=== PATIENT | male | born 1955 | race Caucasian/White ===

== ENCOUNTER 2022-05-04 07:40 | Emergency (ER) | payer OTHER ==
[2022-05-04 07:48] VITALS: BP 138/90; PULSE 86; RESP 16; TEMP 97.6; BMI 28.6
[2022-05-04 09:08] LABS: BASO % 0.7 % (0-2.0); EOS % 0.3 % (0-4.5); HEMATOCRIT 45.1 % (35.4-49); HEMOGLOBIN 15.2 GM/dL (11.7-16.9); LYMPH % 26.2 % (8-40); MCH 30.3 pg (25.7-33.7); MCHC 33.6 g/dl (32.0-35.9); MEAN CELL VOLUME 90.2 fl (80-96); MEAN PLT VOLUME 7.3 fl (7.5-11.1); MONO % 9.2 % (3.8-10.2); NEUT % 63.6 % (42.8-82.8); PLATELET COUNT 288 10^3/uL (134-434); RDW 13.2 % (11.9-15.9); WHITE BLOOD COUNT 4.4 K/mm3 (4.0-10.0)
[2022-05-04 09:15] LABS: INR 1.11 (0.83-1.09); PROTHROMBIN TIME (PATIENT) 12.8 SEC (9.7-13.0)
[2022-05-04 09:18] LABS: ACTIVATED PTT 35.3 SECONDS (25.2-36.5)
[2022-05-04 09:29] LABS: BLOOD UREA NITROGEN 16.9 mg/dL (7-18); CALCIUM 9.8 mg/dL (8.5-10.1)
[2022-05-04 09:32] LABS: CREATININE 1.1 mg/dL (0.55-1.3)
[2022-05-04 09:34] LABS: BILIRUBIN,TOTAL 0.4 mg/dL (0.2-1); TOT PROT 6.8 g/dl (6.4-8.2)
== END 2022-05-04 10:02 | disposition home or self-care (01) ==
LOC: JER 07:40
DX: K62.5 Hemorrhage of anus and rectum (principal); K64.9 Unspecified hemorrhoids
CPT/HCPCS: 36415; 80053; 82272; 84484; 85025; 85610; 85730; 86850; 86900; 86901; 99283-25

== ENCOUNTER 2022-09-02 04:28 | Day surgery (SDC) | payer OTHER ==
[2022-09-01 14:19] VITALS: BMI 28.8
[2022-09-02 09:09] VITALS: TEMP 98
[2022-09-02 09:22] VITALS: RESP 17
[2022-09-02 09:40] VITALS: BP 127/93; PULSE 67
== END 2022-09-02 10:18 | disposition home or self-care (01) ==
LOC: JASU-ENDO 04:28
PROVIDERS: ATTEND Student in an Organized Health Care Education/Training Program
PROC: 0DBL8ZX Excision of Transverse Colon, Via Natural or Artificial Opening Endoscopic, Diagnostic (ICD-10-PCS; 2022-09-02)
PROC: 0DBP8ZX Excision of Rectum, Via Natural or Artificial Opening Endoscopic, Diagnostic (ICD-10-PCS; principal; 2022-09-02 08:30)
DX: K62.1 Rectal polyp (principal); D12.3 Benign neoplasm of transverse colon; K57.30 Diverticulosis of large intestine without perforation or abscess without bleeding; K63.89 Other specified diseases of intestine
CPT/HCPCS: 88305-TC

== ENCOUNTER 2024-11-16 06:05 | Day surgery (SDC) | payer OTHER ==
[2024-11-14 11:53] VITALS: BMI 25.0
[2024-11-16 08:44] LABS: ABSOLUTE IMMATURE GRANULOCYTES 0.01 x10^3/uL (0.0-0.031); BASOPHILS # 0.05 x10^3/uL (0.01-0.08); EOSINOPHIL % 0.9 % (0.8-7.0); EOSINOPHILS # 0.04 x10^3/uL (0.04-0.54); MCHC 34.1 g/dl (32.3-36.5); MEAN CELL VOLUME 91.2 fl (79.0-92.2); MEAN PLT VOLUME 9.2 fl (9.4-12.4); MONOCYTE # 0.49 x10^3/uL (0.30-0.82); MONOCYTE % 10.4 % (5.3-12.2); RDW 12.8 % (12.2-16.6)
[2024-11-16 08:50] LABS: INR 1.11 (0.83-1.09); PROTHROMBIN TIME (PATIENT) 12.1 SEC (9.7-13.0)
[2024-11-16 09:13] LABS: CO2 25.0 mmol/L (21-32); GLUCOSE,RANDOM 116.0 mg/dL (74-106)
[2024-11-16 09:16] LABS: CREATININE 1.1 mg/dL (0.55-1.3); SGOT/AST 13.0 U/L (15-37); SGPT/ALT 35.0 U/L (13-61)
[2024-11-16 09:17] LABS: TOT PROT 6.5 g/dl (6.4-8.2)
[2024-11-16 09:19] LABS: ALK PHOS 81.0 U/L (45-117)
[2024-11-16] MEDS ORDERED: FENTANYL CITRATE/PF 50 MCG/ML VIAL ONE (10:28)
[2024-11-16] MEDS: SODIUM CHLORIDE 500 ML IV ONE (10:40)
[2024-11-16] MEDS: FENTANYL CITRATE/PF 50 MCG/ML VIAL IVPUSH ONE ×3 (10:44→10:50)
[2024-11-16 11:52] VITALS: RESP 16
[2024-11-16 12:59] VITALS: BP 125/85; PULSE 73; TEMP 97.8
== END 2024-11-16 13:00 | disposition home or self-care (01) ==
LOC: JRADIR 06:05
PROVIDERS: ATTEND Nurse Practitioner Family
PROC: 0QB03ZX Excision of Lumbar Vertebra, Percutaneous Approach, Diagnostic (ICD-10-PCS; principal; 2024-11-16)
DX: C90.00 Multiple myeloma not having achieved remission (principal)
CPT/HCPCS: 20225; 36415; 77012-TC; 80053; 85025; 85610; 88305-TC

== ENCOUNTER 2025-01-16 09:49 | Day surgery (SDC) | payer OTHER ==
[~2025-01-16 09:49] MED LIST: DARATUMUMAB-HYALURONIDASE-FIHJ (FASPRO) 15 ML VIAL SQ ONE
[2025-01-16 10:40] LABS: ABSOLUTE IMMATURE GRANULOCYTES 0.09 x10^3/uL (0.0-0.031); BASOPHILS # 0.00 x10^3/uL (0.01-0.08); EOSINOPHIL % 0.0 % (0.8-7.0); EOSINOPHILS # 0.00 x10^3/uL (0.04-0.54); MCHC 33.5 g/dl (32.3-36.5); MEAN CELL VOLUME 92.6 fl (79.0-92.2); MEAN PLT VOLUME 9.3 fl (9.4-12.4); MONOCYTE # 0.37 x10^3/uL (0.30-0.82); MONOCYTE % 8.5 % (5.3-12.2); RDW 13.4 % (12.2-16.6)
[2025-01-16 11:04] LABS: TOT PROT 5.7 g/dl (6.4-8.2)
[2025-01-16 11:06] LABS: ALK PHOS 85.0 U/L (40-150); GLUCOSE,RANDOM 129 mg/dL (74-106)
[2025-01-16 11:07] LABS: CO2 20 mmol/L (21-32)
[2025-01-16 11:09] LABS: SGOT/AST 18.0 U/L (5-34); SGPT/ALT 47.0 U/L (0-55)
[2025-01-16 11:12] LABS: CREATININE 0.82 mg/dL (0.55-1.3)
[2025-01-16] MEDS: diphenhydrAMINE HCL 25 MG CAPSULE (FP) PO ONE (11:25)
[2025-01-16] MEDS: DEXAMETHASONE 4 MG TABLET (FP) PO ONE (11:25)
[2025-01-16] MEDS: ACETAMINOPHEN 325 MG TABLET (FP) PO ONE (11:25)
[2025-01-16] MEDS: BORTEZOMIB 2.5 MG/ML SUB-Q INJECTION SQ ONE (11:28)
[2025-01-16] MEDS: DARATUMUMAB-HYALURONIDASE-FIHJ (FASPRO) 15 ML VIAL SQ ONE (12:09)
[2025-01-16 16:13] VITALS: BP 105/66; PULSE 78; RESP 16; TEMP 97.7
[2025-01-17 19:07] LABS: FREE KAPPA,SERUM 23.4 mg/L (3.3-19.4)
[2025-01-17 20:07] LABS: IG A QN SERUM. 20 mg/dL (61-437)
== END 2025-01-16 12:30 | disposition home or self-care (01) ==
LOC: JONCCHEMO 09:49
PROVIDERS: ATTEND Internal Medicine Hematology & Oncology
DX: Z51.11 Encounter for antineoplastic chemotherapy (principal); C90.00 Multiple myeloma not having achieved remission
CPT/HCPCS: 36415; 80048; 80076; 82784; 83883; 84155; 84165; 85025; 96401; J9041; J9144

== ENCOUNTER 2025-01-23 12:30 | Day surgery (SDC) | payer OTHER ==
[2025-01-23 13:17] LABS: ABSOLUTE IMMATURE GRANULOCYTES 0.01 x10^3/uL (0.0-0.031); BASOPHILS # 0.01 x10^3/uL (0.01-0.08); EOSINOPHIL % 0.0 % (0.8-7.0); EOSINOPHILS # 0.00 x10^3/uL (0.04-0.54); MCHC 34.5 g/dl (32.3-36.5); MEAN CELL VOLUME 91.9 fl (79.0-92.2); MEAN PLT VOLUME 9.0 fl (9.4-12.4); MONOCYTE # 0.44 x10^3/uL (0.30-0.82); MONOCYTE % 11.0 % (5.3-12.2); RDW 13.2 % (12.2-16.6)
[2025-01-23 13:44] LABS: GLUCOSE,RANDOM 115 mg/dL (74-106); TOT PROT 5.9 g/dl (6.4-8.2)
[2025-01-23 13:45] LABS: CO2 21 mmol/L (21-32)
[2025-01-23 13:46] LABS: ALK PHOS 97 U/L (40-150)
[2025-01-23 13:49] LABS: CREATININE 0.82 mg/dL (0.55-1.3); SGOT/AST 21 U/L (5-34); SGPT/ALT 34 U/L (0-55)
[2025-01-23] MEDS: DEXAMETHASONE 4 MG TABLET (FP) PO ONE (14:05)
[2025-01-23] MEDS: diphenhydrAMINE HCL 25 MG CAPSULE (FP) PO ONE (14:05)
[2025-01-23] MEDS: ACETAMINOPHEN 325 MG TABLET (FP) PO ONE (14:06)
[2025-01-23] MEDS: BORTEZOMIB 2.5 MG/ML SUB-Q INJECTION SQ ONE (14:38)
[2025-01-23] MEDS: DARATUMUMAB-HYALURONIDASE-FIHJ (FASPRO) 15 ML VIAL SQ ONE (14:38)
[2025-01-23 17:53] VITALS: BP 102/71; PULSE 94; RESP 20; TEMP 98.2
[2025-01-24 18:07] LABS: FREE KAPPA,SERUM 26.6 mg/L (3.3-19.4)
[2025-01-25 18:33] LABS: IG A QN SERUM. 19 mg/dL (61-437)
== END 2025-01-23 15:40 | disposition home or self-care (01) ==
LOC: JONCCHEMO 12:30 → J7W 14:01 → JONCCHEMO 15:40
PROVIDERS: ATTEND Internal Medicine Hematology & Oncology
DX: Z51.11 Encounter for antineoplastic chemotherapy (principal); C90.00 Multiple myeloma not having achieved remission
CPT/HCPCS: 36415; 80048; 80076; 82784; 83883; 84155; 84165; 85025; J9041; J9144

== ENCOUNTER 2025-02-20 13:40 | Day surgery (SDC) | payer OTHER ==
[2025-02-20 14:19] LABS: ABSOLUTE IMMATURE GRANULOCYTES 0.04 x10^3/uL (0.0-0.031); BASOPHILS # 0.05 x10^3/uL (0.01-0.08); EOSINOPHIL % 1.1 % (0.8-7.0); EOSINOPHILS # 0.06 x10^3/uL (0.04-0.54); MCHC 33.5 g/dl (32.3-36.5); MEAN CELL VOLUME 93.1 fl (79.0-92.2); MEAN PLT VOLUME 8.9 fl (9.4-12.4); MONOCYTE # 0.82 x10^3/uL (0.30-0.82); MONOCYTE % 15.6 % (5.3-12.2); RDW 13.9 % (12.2-16.6)
[2025-02-20 14:35] LABS: GLUCOSE,RANDOM 156 mg/dL (74-106); TOT PROT 5.7 g/dl (6.4-8.2)
[2025-02-20 14:36] LABS: CO2 23 mmol/L (21-32)
[2025-02-20 14:38] LABS: ALK PHOS 96 U/L (40-150)
[2025-02-20 14:41] LABS: CREATININE 0.73 mg/dL (0.55-1.3); SGOT/AST 16 U/L (5-34); SGPT/ALT 29 U/L (0-55)
[2025-02-20] MEDS: diphenhydrAMINE HCL 25 MG CAPSULE (FP) PO ONE (14:52)
[2025-02-20] MEDS: ACETAMINOPHEN 325 MG TABLET (FP) PO ONE (14:53)
[2025-02-20] MEDS: DEXAMETHASONE 4 MG TABLET (FP) PO ONE (14:53)
[2025-02-20] MEDS: BORTEZOMIB 2.5 MG/ML SUB-Q INJECTION SQ ONE (15:09)
[2025-02-20] MEDS: DARATUMUMAB-HYALURONIDASE-FIHJ (FASPRO) 15 ML VIAL SQ ONE (15:09)
[2025-02-20 16:40] VITALS: BP 114/75; PULSE 90; RESP 20; TEMP 98.2
[2025-02-21 19:06] LABS: FREE KAPPA,SERUM 12.3 mg/L (3.3-19.4)
[2025-02-22 17:06] LABS: IG A QN SERUM. 38 mg/dL (61-437)
== END 2025-02-20 15:30 | disposition home or self-care (01) ==
LOC: JONCCHEMO 13:40
PROVIDERS: ATTEND Internal Medicine Hematology & Oncology
DX: Z51.11 Encounter for antineoplastic chemotherapy (principal); C90.00 Multiple myeloma not having achieved remission
CPT/HCPCS: 36415; 80048; 80076; 82784; 83883; 84155; 84165; 85025; 96401; J9041; J9144